=== PATIENT | male | born 1945 | race Hispanic/Latino ===

== ENCOUNTER 2018-01-03 21:29 | Emergency (ER) | payer MEDICARE ==
[2018-01-03 21:47] VITALS: BP 148/87
== END 2018-01-03 23:04 | disposition left against medical advice (07) ==
LOC: ED 21:29
DX: M54.2 Cervicalgia (principal); Z53.21 Procedure and treatment not carried out due to patient leaving prior to being seen by health care provider

== ENCOUNTER 2018-07-27 15:43 | Inpatient (IN) | payer MEDICARE ==
[2018-07-27] MEDS ORDERED: ASPIRIN PO ONE (15:57)
[2018-07-27 16:11] LABS: Basophils # (Auto) 0.1 K/mm3 (0.0-0.1); Basophils % (Auto) 1.1 % (0.0-1.8); Eosinophils # (Auto) 0.1 K/mm3 (0.0-0.4); Eosinophils % (Auto) 0.6 % (0.0-4.3); Hematocrit 46.9 % (35.5-45.6); Hemoglobin 16.3 gm/dl (11.8-15.2); Lymphocytes # (Auto) 2.2 K/mm3 (1.2-5.4); Lymphocytes % (Auto) 23.2 % (13.4-35.0); Mean Corpuscular HGB Conc 35 % (32-34); Mean Corpuscular Volume 91 fl (84-94); Monocytes # (Auto) 0.6 K/mm3 (0.0-0.8); Monocytes % (Auto) 6.4 % (0.0-7.3); Platelet Count 260 K/mm3 (140-440); Red Blood Count 5.17 M/mm3 (3.65-5.03); Red Cell Distribution Width 13.7 % (13.2-15.2)
[2018-07-27 16:27] LABS: BUN/Creatinine Ratio 18; Blood Urea Nitrogen 24 mg/dL (9-20); Calcium 9.5 mg/dL (8.4-10.2); Hemolysis Index 12
[2018-07-27] MEDS ORDERED: NITROSTAT SL PRN (17:12)
[2018-07-27] MEDS ORDERED: NACL 0.9% 1000 ML 1,000 ML IV ONE (17:12)
--- NOTE | 2018-07-27 17:16 | Emergency Department Report ---
ED Chest Pain HPI - General Chief Complaint: Chest Pain Stated Complaint: CHEST PAIN Time Seen by Provider: 07/27/18 17:12 Source: patient Mode of arrival: Ambulatory Limitations: No Limitations - History of Present Illness Initial Comments: Patient is a 73-year-old male with past history of hypertension and high cholesterol who is presenting with chest pressure. Patient states last night approximately 8 PM patient started feeling skipped beat in his chest. Patient also states there was light pressure in the chest proximal LAD 3 out of 10 in severity. Patient states frequency of these skipped beats is now every 5- 10 beats. Patient went to the fire department to get checked on and was told to come immediately to the emergency department. Patient denies any diaphoresis, nausea vomiting, cough cold congestion at this time. Patient has not had any recent stress testing. - Related Data Home Medications Medication Instructions Recorded Confirmed Last Taken Valsartan/Hydrochlorothiazide 1 each PO QDAY 01/02/18 01/02/18 01/01/18 [Valsartan-Hctz 160-12.5 mg Tab] Previous Rx's Medication Instructions Recorded Last Taken Type Acetaminophen [Acetaminophen TAB] 650 mg PO Q4H PRN #30 tablet 01/03/18 Unknown Rx Aspirin 81 mg PO DAILY #30 tab 01/03/18 Unknown Rx Bisoprolol [Zebeta] 2.5 mg PO DAILY #30 tab 01/03/18 01/01/18 Rx Finasteride [Proscar] 5 mg PO HS #30 tab 01/03/18 01/01/18 Rx Pantoprazole [Protonix TAB] 40 mg PO BID #14 tablet 01/03/18 Unknown Rx Rosuvastatin Calcium [Crestor] 20 mg PO DAILY #30 tablet 01/03/18 Unknown Rx amLODIPine [Norvasc] 5 mg PO DAILY #30 tablet 01/03/18 Unknown Rx Allergies Allergy/AdvReac Type Severity Reaction Status Date / Time atorvastatin [From Lipitor] AdvReac liver Verified 07/27/18 15:56 problems Heart Score - HEART Score History: Moderately suspicious EKG: Non-specific Age: > 65 Risk factors: > 3 risk factors or hx of atherosclerotic disease Troponin: < normal limit HEART Score: 6 ED Review of Systems ROS: Stated complaint: CHEST PAIN Other details as noted in HPI Comment: All other systems reviewed and negative ED Past Medical Hx - Past Medical History Previous Medical History?: Yes Hx Hypertension: Yes Additional medical history: high cholesterol - Surgical History Past Surgical History?: Yes Additional Surgical History: VASECTOMY. RIGHT KNEE. TONSILLECTOMY. right shoulder. nasal surgery - Social History Smoking Status: Never Smoker Substance Use Type: None - Medications Home Medications: Home Medications Medication Instructions Recorded Confirmed Last Taken Type Valsartan/Hydrochlorothiazide 1 each PO QDAY 01/02/18 01/02/18 01/01/18 History [Valsartan-Hctz 160-12.5 mg Tab] Acetaminophen [Acetaminophen TAB] 650 mg PO Q4H PRN #30 tablet 01/03/18 Unknown Rx Aspirin 81 mg PO DAILY #30 tab 01/03/18 Unknown Rx Bisoprolol [Zebeta] 2.5 mg PO DAILY #30 tab 01/03/18 01/02/18 01/01/18 Rx Finasteride [Proscar] 5 mg PO HS #30 tab 01/03/18 01/02/18 01/01/18 Rx Pantoprazole [Protonix TAB] 40 mg PO BID #14 tablet 01/03/18 Unknown Rx Rosuvastatin Calcium [Crestor] 20 mg PO DAILY #30 tablet 01/03/18 Unknown Rx amLODIPine [Norvasc] 5 mg PO DAILY #30 tablet 01/03/18 Unknown Rx ED Physical Exam - General Limitations: No Limitations General appearance: alert, in no apparent distress - Head Head exam: Present: atraumatic, normocephalic - Eye Eye exam: Present: normal appearance - ENT ENT exam: Present: mucous membranes moist - Neck Neck exam: Present: normal inspection - Respiratory Respiratory exam: Present: normal lung sounds bilaterally. Absent: respiratory distress, wheezes, rales, rhonchi - Cardiovascular Cardiovascular Exam: Present: regular rate, normal rhythm. Absent: systolic murmur, diastolic murmur, rubs, gallop - GI/Abdominal GI/Abdominal exam: Present: soft, normal bowel sounds. Absent: distended, tenderness, guarding, rebound - Rectal Rectal exam: Present: deferred - Extremities Exam Extremities exam: Present: normal inspection - Back Exam Back exam: Present: normal inspection - Neurological Exam Neurological exam: Present: alert, oriented X3 - Psychiatric Psychiatric exam: Present: normal affect, normal mood - Skin Skin exam: Present: warm, dry, intact, normal color. Absent: rash ED Course Vital Signs 07/27/18 07/27/18 07/27/18 15:48 17:17 17:30 Pulse Rate 64 63 Respiratory 18 17 Rate Blood Pressure 158/79 114/69 121/68 O2 Sat by Pulse 96 96 95 Oximetry 07/27/18 17:57 Pulse Rate Respiratory 18 Rate Blood Pressure O2 Sat by Pulse Oximetry ANTHONY score - Anthony Score Age > 65: (1) Yes Aspirin use within the Past 7 Days: (0) No 3 or more CAD Risk Factors: (1) Yes 2 or more Angina events in past 24 hrs: (1) Yes Known CAD with more than 50% Stenosis: (0) No Elevated Cardiac Markers: (0) No ST Deviation Greater than 0.5mm: (0) No ANTHONY Score: 3 ED Medical Decision Making - Lab Data Result diagrams: 07/27/18 15:59 07/27/18 15:59 Lab Results 07/27/18 07/27/18 Range/Units 15:59 15:59 WBC 9.7 (4.5-11.0) K/mm3 RBC 5.17 H (3.65-5.03) M/mm3 Hgb 16.3 H (11.8-15.2) gm/dl Hct 46.9 H (35.5-45.6) % MCV 91 (84-94) fl MCH 32 (28-32) pg MCHC 35 H (32-34) % RDW 13.7 (13.2-15.2) % Plt Count 260 (140-440) K/mm3 Lymph % (Auto) 23.2 (13.4-35.0) % [place] % (Auto) 6.4 (0.0-7.3) % Eos % (Auto) 0.6 (0.0-4.3) % Baso % (Auto) 1.1 (0.0-1.8) % Lymph # 2.2 (1.2-5.4) K/mm3 [place] # 0.6 (0.0-0.8) K/mm3 Eos # 0.1 (0.0-0.4) K/mm3 Baso # 0.1 (0.0-0.1) K/mm3 Seg Neutrophils % 68.7 (40.0-70.0) % Seg Neutrophils # 6.6 (1.8-7.7) K/mm3 Sodium 137 (137-145) mmol/L Potassium 4.0 (3.6-5.0) mmol/L Chloride 97.7 L (98-107) mmol/L Carbon Dioxide 25 (22-30) mmol/L Anion Gap 18 mmol/L BUN 24 H (9-20) mg/dL Creatinine 1.3 (0.8-1.5) mg/dL Estimated GFR 54 ml/min BUN/Creatinine Ratio 18 % Glucose 124 H (75-100) mg/dL Calcium 9.5 (8.4-10.2) mg/dL Troponin T < 0.010 (0.00-0.029) ng/mL - EKG Data -: EKG Interpreted by Me - EKG Data 07/27/18 17:15 EKG shows sinus rhythm a rate of 65. The patient's EKG shows normal intervals and normal axis. There are occasional PACs present. There are no ST segment elevations or depressions. Time of interpretation is 1611 - Radiology Data Radiology results: image reviewed (chest x-ray is within normal limits) - Medical Decision Making Patient is a 73-year-old male who has a heart score 5. Presented with some chest pressure and palpitations. Patient has continued to throw numerous PACs and is able to feel when these happen. He states the frequency is increasing. Patient's chest discomfort was improved with nitroglycerin. Patient to be admitted to hospitalists under Dr. Leach at this time. Patient to see cardiology for cardiac risk stratification. Patient to be admitted in stable condition. Critical Care Time: Yes (30) Critical care attestation.: If time is entered above; I have spent that time in minutes in the direct care of this critically ill patient, excluding procedure time. ED Disposition Clinical Impression: PAC (premature atrial contraction) Chest pain Qualifiers: Chest pain type: unspecified Qualified Code(s): R07.9 - Chest pain, unspecified Disposition: OP ADMIT IP TO THIS HOSP Is pt being admited?: Yes Does the pt Need Aspirin: No Condition: Stable Instructions: Chest Pain (ED) Time of Disposition: 18:07
--- NOTE | 2018-07-27 18:06 | XRay Report ---
FINAL REPORT EXAM: XR CHEST 1V AP HISTORY: chest pressure and palpitations TECHNIQUE: upright single view chest PRIORS: None. FINDINGS: Cardiac and mediastinal contours are unremarkable. No focal pulmonary infiltrate is identified. No pleural fluid collection seen. Pulmonary vasculature is unremarkable. IMPRESSION: Negative single-view chest
--- NOTE | 2018-07-27 18:18 | History and Physical Report ---
History of Present Illness Chief complaint: My heart was skipping beats History of present illness: 73 YO Male with Obesity, HTN, HLD, Diastolic CHF presents to ED for evaluation. Pt states that he has experienced pain in his chest as well as chest palpitations over the past 1 day wit persistent symptoms over the past 4 hours. Pt states that pain is 3-5/10, substernal, nonradiating, squeezing in nature, not worsened with exertion, not relieved with rest. Pt initially went to a nearby fire station and underwent and EKG and was instructed to seek medical care. Pt was transported to [facility] by his for further care and evaluation. Pt seen and evaluated in ED and found to have symptoms consistent with ACS as well as Diastolic CHF. Pt admitted to telemetry. Cardiology consulted in ED. Pt denies fever, chills, NVD, Trauma, productive cough, skin rash, unilateral leg swelling, calf pain, prolonged travel/immobility, or recent ill contacts. Past History Past Medical History: heart failure, hypertension, hyperlipidemia, other (obesity) Past Surgical History: tonsillectomy, Other (Vasectomy, R Shoulder) Social history: denies: , lives with family, smoking, alcohol abuse, prescription drug abuse Family history: hypertension Medications and Allergies Allergies Allergy/AdvReac Type Severity Reaction Status Date / Time atorvastatin [From Lipitor] AdvReac liver Verified 07/27/18 15:56 problems Home Medications Medication Instructions Recorded Confirmed Last Taken Type Valsartan/Hydrochlorothiazide 1 each PO QDAY 01/02/18 01/02/18 01/01/18 History [Valsartan-Hctz 160-12.5 mg Tab] Acetaminophen [Acetaminophen TAB] 650 mg PO Q4H PRN #30 tablet 01/03/18 Unknown Rx Aspirin 81 mg PO DAILY #30 tab 01/03/18 Unknown Rx Bisoprolol [Zebeta] 2.5 mg PO DAILY #30 tab 01/03/18 01/02/18 01/01/18 Rx Finasteride [Proscar] 5 mg PO HS #30 tab 01/03/18 01/02/18 01/01/18 Rx Pantoprazole [Protonix TAB] 40 mg PO BID #14 tablet 01/03/18 Unknown Rx Rosuvastatin Calcium [Crestor] 20 mg PO DAILY #30 tablet 01/03/18 Unknown Rx amLODIPine [Norvasc] 5 mg PO DAILY #30 tablet 01/03/18 Unknown Rx Active Meds: Active Medications Nitroglycerin (Nitrostat) 0.4 mg SL .Q5MIN PRN PRN Reason: Chest Pain Review of Systems Constitutional: no weight loss, no weight gain, no fever, no chills Ears, nose, mouth and throat: no ear pain, no ear discharge, no tinnitis, no decreased hearing, no nose pain, no nasal congestion Cardiovascular: chest pain, palpitations, no dyspnea on exertion, no paroxysmal nocturnal dyspnea, no claudication Respiratory: no cough, no cough with sputum, no excessive sputum, no hemoptysis Gastrointestinal: no abdominal pain, no nausea, no vomiting, no diarrhea, no constipation Genitourinary Male: no hematuria, no flank pain, no discharge, no urinary frequency, no urinary hesitancy Rectal: no pain, no incontinence, no bleeding Musculoskeletal: no neck stiffness, no neck pain, no shooting arm pain, no arm numbness/tingling, no low back pain, no shooting leg pain Integumentary: no rash, no pruritis, no redness, no sores, no wounds Neurological: no transient paralysis, no paralysis, no weakness, no parathesias, no numbness, no tingling Psychiatric: no anxiety, no memory loss, no change in sleep habits, no sleep disturbances, no insomnia, no hypersomnia Endocrine: no cold intolerance, no heat intolerance, no excessive thirst, no polydipsia, no polyuria Hematologic/Lymphatic: no easy bruising, no easy bleeding, no lymphadenopathy, no lymphedema Allergic/Immunologic: no urticaria, no allergic rhinitis, no wheezing, no persistent infections, no anaphylaxis, no angioedema Exam - Constitutional Vitals: Temp Pulse Resp BP Pulse Ox 63 18 121/68 95 07/27/18 17:30 07/27/18 17:57 07/27/18 17:30 07/27/18 17:30 General appearance: Present: mild distress - EENT Eyes: Present: PERRL ENT: hearing intact, clear oral mucosa - Neck Neck: Present: supple, normal ROM - Respiratory Respiratory effort: normal Respiratory: bilateral: CTA - Cardiovascular Heart Sounds: Present: S1 & S2. Absent: rub, click - Extremities Extremities: pulses symmetrical, No edema Peripheral Pulses: within normal limits - Abdominal General gastrointestinal: Present: soft, non-tender, non-distended, normal bowel sounds Male genitourinary: Present: normal - Integumentary Integumentary: Present: clear, warm, dry - Musculoskeletal Musculoskeletal: gait normal, strength equal bilaterally - Psychiatric Psychiatric: appropriate mood/affect, intact judgment & insight - Neurologic Neurologic: CNII-XII intact, moves all extremities Results - Labs CBC & Chem 7: 07/27/18 15:59 07/27/18 15:59 Labs: Abnormal lab results 07/27/18 07/27/18 Range/Units 15:59 15:59 RBC 5.17 H (3.65-5.03) M/mm3 Hgb 16.3 H (11.8-15.2) gm/dl Hct 46.9 H (35.5-45.6) % MCHC 35 H (32-34) % Chloride 97.7 L (98-107) mmol/L BUN 24 H (9-20) mg/dL Glucose 124 H (75-100) mg/dL Assessment and Plan - Patient Problems (1) ACS (acute coronary syndrome) Current Visit: Yes Status: Acute Plan to address problem: Admit to telemetry, serial cardiac enzymes, bnp, dimer, morphine, supplemental oxygen, nitro, aspirin, cardiology consulted, stress test (2) Diastolic CHF Current Visit: Yes Status: Acute Qualifiers: Heart failure chronicity: acute Qualified Code(s): I50.31 - Acute diastolic (congestive) heart failure Plan to address problem: Admit to telemetry, cardiology consulted in ED, strict I/O, daily weight, echo, monitor uop q shift, (3) HTN (hypertension) Current Visit: Yes Status: Acute Qualifiers: Hypertension type: essential hypertension Qualified Code(s): I10 - Essential (primary) hypertension Plan to address problem: Monitor bp q shift, (4) HLD (hyperlipidemia) Current Visit: Yes Status: Acute Qualifiers: Hyperlipidemia type: mixed hyperlipidemia Qualified Code(s): E78.2 - Mixed hyperlipidemia Plan to address problem: low cholesterol diet, supportive care, risk factor reduction (5) DVT prophylaxis Current Visit: Yes Status: Acute Plan to address problem: SCD to BLE while in bed.
[2018-07-27] MEDS ORDERED: MORPHINE IV PRN (18:19)
[2018-07-27] MEDS ORDERED: ZOFRAN IV PRN (18:19)
[2018-07-27] MEDS ORDERED: BABY ASPIRIN PO STA (18:19)
[2018-07-27] MEDS ORDERED: TYLENOL PO PRN ×2 (18:19→18:23)
[2018-07-27] MEDS ORDERED: PROVENTIL IH PRN (18:19)
[2018-07-27] MEDS ORDERED: SODIUM CHLORIDE FLUSH SYRINGE 10 ML IV PRN ×2 (18:19)
[2018-07-27 19:18] LABS: Chol/HDL Ratio 4.26 %
[2018-07-27] MEDS ORDERED: PROSCAR PO SCH (22:00)
[2018-07-27] MEDS: PEPCID PO SCH (22:46)
[2018-07-27] MEDS: PROTONIX PO SCH (22:46)
[2018-07-27] MEDS: SODIUM CHLORIDE FLUSH SYRINGE 10 ML IV SCH (22:47)
[2018-07-28] MEDS ORDERED: NORVASC PO SCH (10:00)
[2018-07-28] MEDS ORDERED: DIOVAN PO SCH (10:00)
[2018-07-28] MEDS ORDERED: BABY ASPIRIN PO SCH (10:00)
[2018-07-28] MEDS ORDERED: NON-FORMULARY (Rosuvastatin Calcium [Crestor] 20 MG) PO SCH (10:00)
[2018-07-28] MEDS: BISOPROLOL 2.5 MG PO SCH (10:00)
[2018-07-28] MEDS ORDERED: HCTZ PO SCH (10:00)
[2018-07-28] MEDS ORDERED: NON-FORMULARY (Valsartan/Hydrochlorothiazide [Valsartan-Hctz 160-12.5 Mg Tab] 1 EACH) PO SCH (10:00)
--- NOTE | 2018-07-28 10:55 | Progress Note ---
Assessment and Plan Assessment and plan: 73m who pw cp and palpitations, Past History Past Medical History: heart failure, hypertension, hyperlipidemia, other (obesity) Problems CP palpitations htn hld Plan -acs ruled out, serial ce neg - no evidence of chf clinically, fup echo -cardiology consult -optimize meds for chronic conditions dvt ppx chemical History Interval history: Review of systems Constitutional: No fevers, no malaise, no joint pains CVS: No chest pain, no orthopnea, no dyspnea on exertion, no pedal edema GI: No abdominal pain, no diarrhea, no vomiting, no constipation Respiratory: No shortness of breath, no wheezing, no coughing Hospitalist Physical - Physical exam Narrative exam: General.: Appears well, no distress, nontoxic HEENT: Moist mucous membranes, extraocular muscles intact, no lymphadenopathy Neck: supple Cardiac: S1-S2 heard Lungs: clear to auscultation bilaterally Abdomen: soft , nontender, nondistended, bowel sounds positive Extremities: no edema clubbing or cyanosis Skin: no rash or lesions Neurologic: no gross focal deficits Psych: calm, and cooperative - Constitutional Vitals: Temp Pulse Resp BP Pulse Ox 97.4 F L 47 L 16 107/69 95 07/28/18 07:50 07/28/18 07:50 07/28/18 07:50 07/28/18 07:50 07/28/18 09:36 General appearance: Present: mild distress Results - Labs CBC & Chem 7: 07/27/18 15:59 07/27/18 15:59 Labs: Laboratory Last Values WBC 9.7 K/mm3 (4.5-11.0) 07/27/18 15:59 RBC 5.17 M/mm3 (3.65-5.03) H 07/27/18 15:59 Hgb 16.3 gm/dl (11.8-15.2) H 07/27/18 15:59 Hct 46.9 % (35.5-45.6) H 07/27/18 15:59 MCV 91 fl (84-94) 07/27/18 15:59 MCH 32 pg (28-32) 07/27/18 15:59 MCHC 35 % (32-34) H 07/27/18 15:59 RDW 13.7 % (13.2-15.2) 07/27/18 15:59 Plt Count 260 K/mm3 (140-440) 07/27/18 15:59 Lymph % (Auto) 23.2 % (13.4-35.0) 07/27/18 15:59 [place] % (Auto) 6.4 % (0.0-7.3) 07/27/18 15:59 Eos % (Auto) 0.6 % (0.0-4.3) 07/27/18 15:59 Baso % (Auto) 1.1 % (0.0-1.8) 07/27/18 15:59 Lymph # 2.2 K/mm3 (1.2-5.4) 07/27/18 15:59 [place] # 0.6 K/mm3 (0.0-0.8) 07/27/18 15:59 Eos # 0.1 K/mm3 (0.0-0.4) 07/27/18 15:59 Baso # 0.1 K/mm3 (0.0-0.1) 07/27/18 15:59 Seg Neutrophils % 68.7 % (40.0-70.0) 07/27/18 15:59 Seg Neutrophils # 6.6 K/mm3 (1.8-7.7) 07/27/18 15:59 Sodium 137 mmol/L (137-145) 07/27/18 15:59 Potassium 4.0 mmol/L (3.6-5.0) 07/27/18 15:59 Chloride 97.7 mmol/L (98-107) L 07/27/18 15:59 Carbon Dioxide 25 mmol/L (22-30) 07/27/18 15:59 Anion Gap 18 mmol/L 07/27/18 15:59 BUN 24 mg/dL (9-20) H 07/27/18 15:59 Creatinine 1.3 mg/dL (0.8-1.5) 07/27/18 15:59 Estimated GFR 54 ml/min 07/27/18 15:59 BUN/Creatinine Ratio 18 % 07/27/18 15:59 Glucose 124 mg/dL (75-100) H 07/27/18 15:59 Calcium 9.5 mg/dL (8.4-10.2) 07/27/18 15:59 Troponin T < 0.010 ng/mL (0.00-0.029) 07/27/18 21:55 Triglycerides 162 mg/dL (2-149) H 07/27/18 18:50 Cholesterol 128 mg/dL (50-199) 07/27/18 18:50 LDL Cholesterol Direct 84 mg/dL (50-130) 07/27/18 18:50 HDL Cholesterol 30 mg/dL (40-59) L 07/27/18 18:50 Cholesterol/HDL Ratio 4.26 % 07/27/18 18:50
[2018-07-28] MEDS: PROTONIX PO SCH ×2 (11:25→22:22)
[2018-07-28] MEDS: PEPCID PO SCH ×2 (11:25→22:23)
--- NOTE | 2018-07-28 14:00 | Consultation ---
History of Present Illness Consult date: 07/28/18 Consult reason: chest pain History of present illness: 73 YO Male with Obesity, htn and HL who presented to ED with pressure type of chest discomfort and palpitations. He thinks pain is relatively mild and has been happening intermittently for several days. His palpitations feel like a sensation of skipped heart beats. He has known history of PACs and has been treated with low dose bisoprolol. ECG reveals sinus bradycardia at 52 bpm, occasional PACs. His prior cardiac evaluation has included echocardiogram in 12/2017 which revealed normal LVEF of 55-60% and no significant valvular lesions. Past History Past Medical History: hypertension, hyperlipidemia, other (obesity) Past Surgical History: tonsillectomy, Other (Vasectomy, R Shoulder) Social history: denies: , lives with family, smoking, alcohol abuse, prescription drug abuse Family history: hypertension Medications and Allergies Allergies Allergy/AdvReac Type Severity Reaction Status Date / Time atorvastatin [From Lipitor] AdvReac liver Verified 07/27/18 15:56 problems Home Medications Medication Instructions Recorded Confirmed Last Taken Type Valsartan/Hydrochlorothiazide 1 each PO QDAY 01/02/18 07/28/18 07/28/18 07:30 History [Valsartan-Hctz 160-12.5 mg Tab] Bisoprolol [Zebeta] 2.5 mg PO DAILY #30 tab 01/03/18 07/28/18 07/28/18 07:30 Rx Finasteride [Proscar] 5 mg PO HS #30 tab 01/03/18 07/28/18 07/28/18 07:30 Rx Rosuvastatin Calcium [Crestor] 20 mg PO DAILY #30 tablet 01/03/18 07/28/18 07/28/18 07:30 Rx amLODIPine [Norvasc] 5 mg PO DAILY #30 tablet 01/03/18 07/28/18 07/28/18 07:30 Rx Active Meds: Active Medications Acetaminophen (Tylenol) 650 mg PO Q4H PRN PRN Reason: Pain MILD(1-3)/Fever >100.5/RAZA Albuterol (Proventil) 2.5 mg IH Q4HRT PRN PRN Reason: Shortness Of Breath Amlodipine Besylate (Norvasc) 5 mg PO DAILY CHRIS Aspirin (Baby Aspirin) 81 mg PO DAILY CHRIS Last Admin: 07/28/18 11:24 Dose: Not Given Documented by: Enoxaparin Sodium (Lovenox) 40 mg SUB-Q QDAY@2200 [facility] Famotidine (Pepcid) 20 mg PO BID [facility] Last Admin: 07/28/18 11:25 Dose: Not Given Documented by: Finasteride (Proscar) 5 mg PO HS [facility] Miscellaneous (No Known Home Medications) 1 MC QDAY [facility] Miscellaneous (No Known Home Medications) 1 MC QDAY [facility] Miscellaneous Medication (Bisoprolol [Zebeta]) 2.5 mg PO DAILY [facility] Last Admin: 07/28/18 10:00 Dose: Not Given Documented by: Morphine Sulfate (Morphine) 2 mg IV Q4H PRN PRN Reason: Pain, Moderate (4-6) Nitroglycerin (Nitrostat) 0.4 mg SL .Q5MIN PRN PRN Reason: Chest Pain Ondansetron HCl (Zofran) 4 mg IV Q8H PRN PRN Reason: Nausea And Vomiting Pantoprazole Sodium (Protonix) 40 mg PO BID [facility] Last Admin: 07/28/18 11:25 Dose: Not Given Documented by: Sodium Chloride (Sodium Chloride Flush Syringe 10 Ml) 10 ml IV BID [facility] Last Admin: 07/27/18 22:47 Dose: 10 ml Documented by: Sodium Chloride (Sodium Chloride Flush Syringe 10 Ml) 10 ml IV PRN PRN PRN Reason: LINE FLUSH Sodium Chloride (Sodium Chloride Flush Syringe 10 Ml) 10 ml IV PRN PRN PRN Reason: LINE FLUSH Review of Systems All systems: negative (per hpi) Physical Examination Vital Signs Pulse Resp BP Pulse Ox 64 18 158/79 96 07/27/18 15:48 07/27/18 15:48 07/27/18 15:48 07/27/18 15:48 General appearance: no acute distress HEENT: Positive: PERRL, EOMI Neck: Positive: neck supple, trachea midline Cardiac: Positive: Reg Rate and Rhythm. Negative: Audible Murmur Lungs: Positive: clear to auscultation, Normal Breath Sounds Neuro: Positive: Grossly Intact Abdomen: Positive: Soft, Active Bowel Sounds Results 07/27/18 15:59 07/27/18 15:59 Cardiac Enzymes 07/27/18 07/27/18 07/27/18 Range/Units 15:59 15:59 18:50 WBC 9.7 (4.5-11.0) K/mm3 RBC 5.17 H (3.65-5.03) M/mm3 Hgb 16.3 H (11.8-15.2) gm/dl Hct 46.9 H (35.5-45.6) % MCV 91 (84-94) fl MCH 32 (28-32) pg MCHC 35 H (32-34) % RDW 13.7 (13.2-15.2) % Plt Count 260 (140-440) K/mm3 Lymph % (Auto) 23.2 (13.4-35.0) % [place] % (Auto) 6.4 (0.0-7.3) % Eos % (Auto) 0.6 (0.0-4.3) % Baso % (Auto) 1.1 (0.0-1.8) % Lymph # 2.2 (1.2-5.4) K/mm3 [place] # 0.6 (0.0-0.8) K/mm3 Eos # 0.1 (0.0-0.4) K/mm3 Baso # 0.1 (0.0-0.1) K/mm3 Seg Neutrophils % 68.7 (40.0-70.0) % Seg Neutrophils # 6.6 (1.8-7.7) K/mm3 Sodium 137 (137-145) mmol/L Potassium 4.0 (3.6-5.0) mmol/L Chloride 97.7 L (98-107) mmol/L Carbon Dioxide 25 (22-30) mmol/L Anion Gap 18 mmol/L BUN 24 H (9-20) mg/dL Creatinine 1.3 (0.8-1.5) mg/dL Estimated GFR 54 ml/min BUN/Creatinine Ratio 18 % Glucose 124 H (75-100) mg/dL Calcium 9.5 (8.4-10.2) mg/dL Troponin T < 0.010 < 0.010 (0.00-0.029) ng/mL Triglycerides (2-149) mg/dL Cholesterol (50-199) mg/dL LDL Cholesterol Direct (50-130) mg/dL HDL Cholesterol (40-59) mg/dL Cholesterol/HDL Ratio % 07/27/18 07/27/18 Range/Units 18:50 21:55 WBC (4.5-11.0) K/mm3 RBC (3.65-5.03) M/mm3 Hgb (11.8-15.2) gm/dl Hct (35.5-45.6) % MCV (84-94) fl MCH (28-32) pg MCHC (32-34) % RDW (13.2-15.2) % Plt Count (140-440) K/mm3 Lymph % (Auto) (13.4-35.0) % [place] % (Auto) (0.0-7.3) % Eos % (Auto) (0.0-4.3) % Baso % (Auto) (0.0-1.8) % Lymph # (1.2-5.4) K/mm3 [place] # (0.0-0.8) K/mm3 Eos # (0.0-0.4) K/mm3 Baso # (0.0-0.1) K/mm3 Seg Neutrophils % (40.0-70.0) % Seg Neutrophils # (1.8-7.7) K/mm3 Sodium (137-145) mmol/L Potassium (3.6-5.0) mmol/L Chloride (98-107) mmol/L Carbon Dioxide (22-30) mmol/L Anion Gap mmol/L BUN (9-20) mg/dL Creatinine (0.8-1.5) mg/dL Estimated GFR ml/min BUN/Creatinine Ratio % Glucose (75-100) mg/dL Calcium (8.4-10.2) mg/dL Troponin T < 0.010 (0.00-0.029) ng/mL Triglycerides 162 H (2-149) mg/dL Cholesterol 128 (50-199) mg/dL LDL Cholesterol Direct 84 (50-130) mg/dL HDL Cholesterol 30 L (40-59) mg/dL Cholesterol/HDL Ratio 4.26 % Lipids 07/27/18 Range/Units 18:50 Triglycerides 162 H (2-149) mg/dL Cholesterol 128 (50-199) mg/dL HDL Cholesterol 30 L (40-59) mg/dL Cholesterol/HDL Ratio 4.26 % CBC 07/27/18 Range/Units 15:59 WBC 9.7 (4.5-11.0) K/mm3 RBC 5.17 H (3.65-5.03) M/mm3 Hgb 16.3 H (11.8-15.2) gm/dl Hct 46.9 H (35.5-45.6) % Plt Count 260 (140-440) K/mm3 Lymph # 2.2 (1.2-5.4) K/mm3 [place] # 0.6 (0.0-0.8) K/mm3 Eos # 0.1 (0.0-0.4) K/mm3 Baso # 0.1 (0.0-0.1) K/mm3 Comprehensive Metabolic Panel 07/27/18 Range/Units 15:59 Sodium 137 (137-145) mmol/L Potassium 4.0 (3.6-5.0) mmol/L Chloride 97.7 L (98-107) mmol/L Carbon Dioxide 25 (22-30) mmol/L BUN 24 H (9-20) mg/dL Creatinine 1.3 (0.8-1.5) mg/dL Glucose 124 H (75-100) mg/dL Calcium 9.5 (8.4-10.2) mg/dL Assessment and Plan Atypical chest pain. PA ruled out Palpitations related to atrial ectopy Mild sinus bradycardia Htn HL Recommend: Continue current medical therapy including low dose beta zuly. Set up stress MPI for tomorrow.
[2018-07-28] MEDS: SODIUM CHLORIDE FLUSH SYRINGE 10 ML IV SCH ×2 (15:00→22:23)
[2018-07-28] MEDS ORDERED: LOVENOX SUB-Q SCH (22:00)
[2018-07-28] MEDS ORDERED: PROSCAR PO SCH (22:00)
[2018-07-29] MEDS ORDERED: NORVASC PO SCH (07:30)
[2018-07-29] MEDS ORDERED: BABY ASPIRIN PO SCH (07:30)
[2018-07-29] MEDS ORDERED: [UNRECOGNIZED DRUG - REMARK] MC SCH ×2 (07:30)
[2018-07-29] MEDS ORDERED: BISOPROLOL 2.5 MG PO SCH (07:30)
[2018-07-29 07:37] VITALS: BP 132/85
[2018-07-29] MEDS ORDERED: LEXISCAN IV ONE ×2 (09:55→09:58)
--- NOTE | 2018-07-29 11:39 | Discharge Summary ---
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 Hospitalization Condition: Stable Hospital course: 73m who pw cp and palpitations, Past History Past Medical History: heart failure, hypertension, hyperlipidemia, other (obesity) -he received cardiology consultation, who recommended and MPI, MPI was performed on 07/29/17, prelim results were negative for ischemia per [facility] after which he was dc diagnosis CP due to costochondritis htn hld Disposition: DC-01 TO HOME OR SELFCARE Time spent for discharge: 33 minutes Core Measure Documentation - Palliative Care Palliative Care/ Comfort Measures: Not Applicable - Core Measures Any of the following diagnoses?: none Exam - Constitutional Vitals: Temp Pulse Resp BP Pulse Ox 97.6 F 74 20 132/85 96 07/29/18 04:29 07/29/18 08:23 07/29/18 04:29 07/29/18 04:29 07/29/18 04:29 General appearance: Present: no acute distress, well-nourished - EENT Eyes: Present: PERRL ENT: hearing intact, clear oral mucosa - Neck Neck: Present: supple, normal ROM - Respiratory Respiratory effort: normal Respiratory: bilateral: CTA - Cardiovascular Heart Sounds: Present: S1 & S2. Absent: rub, click - Extremities Extremities: pulses symmetrical, No edema Peripheral Pulses: within normal limits - Abdominal General gastrointestinal: Present: soft, non-tender, non-distended, normal bowel sounds Male genitourinary: Present: normal - Integumentary Integumentary: Present: clear, warm, dry - Musculoskeletal Musculoskeletal: gait normal, strength equal bilaterally - Psychiatric Psychiatric: appropriate mood/affect, intact judgment & insight - Neurologic Neurologic: CNII-XII intact, moves all extremities Plan Follow up with: PRIMARY CARE, [Primary Care Provider] - 3-5 Days Prescriptions: Aspirin [Aspirin BABY CHEW TAB] 81 mg PO 0730 #30 tab.chew Pantoprazole [Protonix TAB] 40 mg PO BID #60 tablet
--- NOTE | 2018-07-29 12:47 | Event Note ---
Date: 07/29/18 Patient completed a stress test during which he exercised for 7 minutes per [facility] protocol, no chest pain, no ST changes of ischemia and no significant dysrhythmias. Myocardial perfusion images are pending for final interpretation.
[2018-07-29] MEDS: PEPCID PO SCH (13:18)
[2018-07-29] MEDS: PROTONIX PO SCH (13:18)
[2018-07-29] MEDS: BISOPROLOL 2.5 MG PO SCH (13:20)
[2018-07-29] MEDS: SODIUM CHLORIDE FLUSH SYRINGE 10 ML IV SCH (13:24)
--- NOTE | 2018-07-29 14:45 | Query- Chest Pain ---
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 Questions asked do not imply a particular answer is desired or expected. We greatly appreciate your clarification on this issue. Clinical Documentation States: 73 YO Male with Obesity, HTN, HLD, Diastolic CHF presents to ED for evaluation. Pt states that he has experienced pain in his chest as well as chest palpitations over the past 1 day wit persistent symptoms over the past 4 hours. Pt states that pain is 3-5/10, substernal, nonradiating, squeezing in nature, not worsened with exertion, not relieved with rest. Diagnosis "Chest Pain." Please document the etiology of Chest Pain: [ ] Myocardial Infarction [ ] Pneumonia [ ] Mediastinitis [ x] Costochondritis [ ] Pulmonary Embolism [ ] Coronary Artery Disease [ ] GERD [ ] Other: [ ] Comment/Explanation: Present on Admission: [x ] Yes (Y) [ ] Clinically undeterminable (W) [ ] No(N) Please document response in your Progress Notes and/or Discharge Summary and indicate if the condition was present on admission. KYLIE
--- NOTE | 2018-07-29 19:02 | Treadmill Report ---
THALLIUM STRESS TEST LEFT VENTRICLE: Left ventricular chamber size is within normal spread. Perfusion study demonstrates normal apical thinning, otherwise homogeneous uptake of the tracer in all segments, no significant defects identified. Gated analysis demonstrates normal left ventricular systolic function, ejection fraction greater than 70%. CONCLUSION: Normal myocardial perfusion study. JOB# [id number] CA/NTS
== END 2018-07-29 14:35 | disposition home or self-care (01) | DRG 205 ==
LOC: ED 15:43 → 4A 18:19
PROVIDERS: ADMIT Internal Medicine; ATTEND Internal Medicine
DX: M94.0 Chondrocostal junction syndrome [Tietze] (principal); I50.31 Acute diastolic (congestive) heart failure; I11.0 Hypertensive heart disease with heart failure; E66.9 Obesity, unspecified; E78.2 Mixed hyperlipidemia; Z68.33 Body mass index [BMI] 33.0-33.9, adult
CPT/HCPCS: 36415; 71045; 78452; 80048; 80061; 84484; 85025; 93005; 93010; 93017; 93306; G0378; A9502; J1650; J2405; J2785; J7030

== ENCOUNTER 2019-12-09 12:34 | Emergency (ER) | payer MEDICARE ==
[2019-12-09 12:55] VITALS: BP 163/100
[2019-12-09] MEDS ORDERED: KETOROLAC 60 MG/2 ML INJ IM ONE (13:20)
--- NOTE | 2019-12-09 13:28 | Emergency Department Report ---
ED General Adult HPI - General Chief complaint: Shoulder Injury Stated complaint: PAIN IN LEFT SHOULDER Time Seen by Provider: 12/09/19 13:15 Source: patient Mode of arrival: Ambulatory Limitations: No Limitations - History of Present Illness Initial comments: Patient is 74 years old male with history of hypertension diabetes and hyperlipidemia. Patient presented to the ER complaining of 4-day history of pain to the upper back mainly to the left side. Patient stated that the pain is in a certain point. Patient stated that pain increases when he moves his left shoulder. Patient denied any chest pain or shortness of breath. Patient also denied any fever, chills or cough. Patient had exercise stress test last year and it was normal. - Related Data Home Medications Medication Instructions Recorded Confirmed Last Taken Valsartan/Hydrochlorothiazide 1 each PO QDAY 01/02/18 07/28/18 07/28/18 07:30 [Valsartan-Hctz 160-12.5 mg Tab] Previous Rx's Medication Instructions Recorded Last Taken Type Bisoprolol [Zebeta] 2.5 mg PO DAILY #30 tab 01/03/18 07/28/18 07:30 Rx Finasteride [Proscar] 5 mg PO HS #30 tab 01/03/18 07/28/18 07:30 Rx Rosuvastatin Calcium [Crestor] 20 mg PO DAILY #30 tablet 01/03/18 07/28/18 07:30 Rx amLODIPine 5 mg PO DAILY #30 tablet 01/03/18 07/28/18 07:30 Rx Aspirin [Aspirin BABY CHEW TAB] 81 mg PO 0730 #30 tab.chew 07/29/18 Unknown Rx Pantoprazole [Protonix TAB] 40 mg PO BID #60 tablet 07/29/18 Unknown Rx Allergies Allergy/AdvReac Type Severity Reaction Status Date / Time atorvastatin [From Lipitor] AdvReac liver Verified 07/27/18 15:56 problems ED Review of Systems ROS: Stated complaint: PAIN IN LEFT SHOULDER Other details as noted in HPI Comment: All other systems reviewed and negative Constitutional: denies: chills, fever Respiratory: denies: cough, shortness of breath Cardiovascular: denies: chest pain, palpitations Gastrointestinal: denies: abdominal pain, nausea, vomiting Musculoskeletal: back pain Neurological: denies: headache, weakness, numbness, paresthesias, confusion ED Past Medical Hx - Past Medical History Previous Medical History?: Yes Hx Hypertension: Yes Hx Congestive Heart Failure: No Hx Diabetes: No Hx Asthma: No Hx COPD: No Additional medical history: high cholesterol - Surgical History Past Surgical History?: Yes Additional Surgical History: VASECTOMY. RIGHT KNEE. TONSILLECTOMY. right shoulder. nasal surgery - Social History Smoking Status: Never Smoker Substance Use Type: None - Medications Home Medications: Home Medications Medication Instructions Recorded Confirmed Last Taken Type Valsartan/Hydrochlorothiazide 1 each PO QDAY 01/02/18 07/28/18 07/28/18 07:30 History [Valsartan-Hctz 160-12.5 mg Tab] Bisoprolol [Zebeta] 2.5 mg PO DAILY #30 tab 01/03/18 07/28/18 07/28/18 07:30 Rx Finasteride [Proscar] 5 mg PO HS #30 tab 01/03/18 07/28/18 07/28/18 07:30 Rx Rosuvastatin Calcium [Crestor] 20 mg PO DAILY #30 tablet 01/03/18 07/28/18 07/28/18 07:30 Rx amLODIPine 5 mg PO DAILY #30 tablet 01/03/18 07/28/18 07/28/18 07:30 Rx Aspirin [Aspirin BABY CHEW TAB] 81 mg PO 0730 #30 tab.chew 07/29/18 Unknown Rx Pantoprazole [Protonix TAB] 40 mg PO BID #60 tablet 07/29/18 Unknown Rx ED Physical Exam - General Limitations: No Limitations General appearance: alert, in no apparent distress - Head Head exam: Present: atraumatic, normocephalic, normal inspection - Eye Eye exam: Present: normal appearance - ENT ENT exam: Present: normal exam, normal orophraynx, mucous membranes moist - Neck Neck exam: Present: normal inspection, full ROM. Absent: tenderness, me ningismus, lymphadenopathy, thyromegaly - Respiratory Respiratory exam: Present: normal lung sounds bilaterally - Cardiovascular Cardiovascular Exam: Present: regular rate, normal rhythm, normal heart sounds. Absent: bradycardia - GI/Abdominal GI/Abdominal exam: Present: soft, normal bowel sounds. Absent: distended, tenderness, guarding, rebound, rigid, organomegaly, mass, bruit, pulsatile mass, hernia - Extremities Exam Extremities exam: Present: normal inspection, full ROM, normal capillary refill. Absent: pedal edema, calf tenderness - Back Exam Back exam: Present: normal inspection, full ROM, tenderness (Tenderness at the medial side of the scapula.). Absent: CVA tenderness (R), CVA tenderness (L) - Neurological Exam Neurological exam: Present: alert, oriented X3, CN II-XII intact, normal gait, reflexes normal - Psychiatric Psychiatric exam: Present: normal mood - Skin Skin exam: Present: warm, intact, normal color ED Course Vital Signs 12/09/19 12/09/19 12:48 12:54 Temperature 97.4 F L Pulse Rate 57 L Respiratory 17 18 Rate Blood Pressure 163/100 O2 Sat by Pulse 98 Oximetry ED Medical Decision Making - EKG Data -: EKG Interpreted by [place] EKG shows normal: sinus rhythm Rate: bradycardia - EKG Data Interpretation: no acute changes - Radiology Data Radiology results: report reviewed - Medical Decision Making Patient is 74 years old male with history of hypertension diabetes and hyperlipidemia. Patient presented to the ER complaining of 4-day history of pain to the upper back mainly to the left side. Patient stated that the pain is in a certain point. Patient stated that pain increases when he moves his left shoulder. Patient denied any chest pain or shortness of breath. Patient also denied any fever, chills or cough. Patient had exercise stress test last year and it was normal. Chest x-ray and left shoulder x-ray is unremarkable. Patient refused blood work. Patient symptoms is most likely related to musculoskeletal pain patient has a localized tenderness at the rhomboid muscles. Patient improved with Toradol 60 mg IM. There is no clinical evidence at this moment to indicate acute coronary artery disease. Critical care attestation.: If time is entered above; I have spent that time in minutes in the direct care of this critically ill patient, excluding procedure time. ED Disposition Clinical Impression: Back pain Disposition: DC-01 TO HOME OR SELFCARE Is pt being admited?: No Condition: Stable Instructions: Back Pain (ED), Shoulder Sprain (ED)
--- NOTE | 2019-12-09 14:00 | XRay Report ---
Left shoulder-3 views INDICATION: Left shoulder pain. COMPARISON: None. IMPRESSION: No acute osseous or soft tissue abnormality. Moderate glenohumeral degenerative arthr osis. Signer Name: Jose Lerner MD Signed: 12/09/2019 1:56 PM Workstation Name: [id number]
--- NOTE | 2019-12-09 14:01 | XRay Report ---
CHEST 1 VIEW INDICATION: Chest Pain. COMPARISON: 07/27/2018 FINDINGS: Support devices: None. Heart: Within normal limits. Lungs/Pleura: Minimal scarring/atelectasis at the left costophrenic angle. Otherwise no acute air spa ce or interstitial disease. Additional findings: None. IMPRESSION: 1. No acute findings. Signer Name: Jose Lerner MD Signed: 12/09/2019 1:57 PM Workstation Name: [id number]
== END 2019-12-09 14:23 | disposition home or self-care (01) ==
LOC: ED 12:34
DX: M54.6 Pain in thoracic spine (principal); M25.512 Pain in left shoulder; I10 Essential (primary) hypertension; E78.00 Pure hypercholesterolemia, unspecified; Z98.890 Other specified postprocedural states; Z90.89 Acquired absence of other organs; Z79.899 Other long term (current) drug therapy; Z88.8 Allergy status to other drugs, medicaments and biological substances
CPT/HCPCS: 71045; 73030; 93005; 96372; 99284; J1885

== ENCOUNTER 2021-01-15 03:40 | Emergency (ER) | payer MEDICARE ==
--- NOTE | 2021-01-15 04:34 | XRay Report ---
Left shoulder 3 views INDICATION: Shoulder pain FINDINGS: Degenerative change in left shoulder joint space narrowing. Large osteophyte along the infe rior aspect of the glenoid and humeral head neck junction. Signer Name: Bakari Ahuja MD Signed: 01/15/2021 4:30 AM Workstation Name: [id number]
[2021-01-15 05:02] VITALS: BP 156/77
[2021-01-15] MEDS ORDERED: KETOROLAC 30 MG/1 ML INJ IM ONE (05:21)
[2021-01-15] MEDS ORDERED: dexAMETHasone 4 MG/ML VIAL IM STA (05:21)
[2021-01-15] MEDS ORDERED: HYDROcodone/ACETAMINOPHEN 5-325 MG TAB PO ONE (05:22)
--- NOTE | 2021-01-15 05:26 | Emergency Department Report ---
ED General Adult HPI - General Chief complaint: Shoulder Injury Stated complaint: CANT MOVE LEFT ARM Time Seen by Provider: 01/15/21 04:40 Source: patient Mode of arrival: Ambulatory Limitations: No Limitations - History of Present Illness Initial comments: 75-year-old male patient presents with complaints of left shoulder pain x2 months, worsening since 2 AM. Patient rates his pain as a 10/10 in severity and states any movement of the right shoulder causes extreme pain. He denies any chest pain, shortness of breath, numbness/tingling/weakness in his left arm. The shoulder hurts to touch per patient. Naproxen helps some per patient. -: Sudden - Related Data Home Medications Medication Instructions Recorded Confirmed Last Taken Valsartan/Hydrochlorothiazide 1 each PO QDAY 01/02/18 07/28/18 07/28/18 07:30 [Valsartan-Hctz 160-12.5 mg Tab] Previous Rx's Medication Instructions Recorded Last Taken Type Bisoprolol [Zebeta] 2.5 mg PO DAILY #30 tab 01/03/18 07/28/18 07:30 Rx Finasteride [Proscar] 5 mg PO HS #30 tab 01/03/18 07/28/18 07:30 Rx Rosuvastatin Calcium [Crestor] 20 mg PO DAILY #30 tablet 01/03/18 07/28/18 07:30 Rx amLODIPine 5 mg PO DAILY #30 tablet 01/03/18 07/28/18 07:30 Rx Aspirin [Aspirin BABY CHEW TAB] 81 mg PO 0730 #30 tab.chew 07/29/18 Unknown Rx Pantoprazole [Protonix TAB] 40 mg PO BID #60 tablet 07/29/18 Unknown Rx Cyclobenzaprine HCl [Flexeril 5 MG 5 mg PO TID PRN #21 tab 12/09/19 Unknown Rx TAB] Naproxen [Naprosyn] 500 mg PO BID #14 tablet 12/09/19 Unknown Rx Diclofenac Sodium 50 mg PO TID PRN #21 tablet. 01/15/21 Unknown Rx Prednisone [predniSONE 5 mg (6-Day 5 mg PO .TAPER #1 tab.ds.pk 01/15/21 Unknown Rx Pack, 21 Tabs)] methocarbamoL [Methocarbamol] 750 mg PO TID PRN #21 tablet 01/15/21 Unknown Rx Allergies Allergy/AdvReac Type Severity Reaction Status Date / Time atorvastatin [From Lipitor] AdvReac liver Verified 07/27/18 15:56 problems ED Review of Systems ROS: Stated complaint: CANT MOVE LEFT ARM Other details as noted in HPI Constitutional: denies: chills, fever, malaise Respiratory: denies: shortness of breath Cardiovascular: denies: chest pain Musculoskeletal: arthralgia. denies: joint swelling Skin: denies: change in color Neurological: denies: numbness, paresthesias ED Past Medical Hx - Past Medical History Hx Hypertension: Yes Hx Congestive Heart Failure: No Hx Diabetes: No Hx Asthma: No Hx COPD: No Additional medical history: high cholesterol - Surgical History Additional Surgical History: VASECTOMY. RIGHT KNEE. TONSILLECTOMY. right shoulder. nasal surgery - Social History Smoking Status: Never Smoker Substance Use Type: None - Medications Home Medications: Home Medications Medication Instructions Recorded Confirmed Last Taken Type Valsartan/Hydrochlorothiazide 1 each PO QDAY 01/02/18 07/28/18 07/28/18 07:30 History [Valsartan-Hctz 160-12.5 mg Tab] Bisoprolol [Zebeta] 2.5 mg PO DAILY #30 tab 01/03/18 07/28/18 07/28/18 07:30 Rx Finasteride [Proscar] 5 mg PO HS #30 tab 01/03/18 07/28/18 07/28/18 07:30 Rx Rosuvastatin Calcium [Crestor] 20 mg PO DAILY #30 tablet 01/03/18 07/28/18 07/28/18 07:30 Rx amLODIPine 5 mg PO DAILY #30 tablet 01/03/18 07/28/18 07/28/18 07:30 Rx Aspirin [Aspirin BABY CHEW TAB] 81 mg PO 0730 #30 tab.chew 07/29/18 Unknown Rx Pantoprazole [Protonix TAB] 40 mg PO BID #60 tablet 07/29/18 Unknown Rx Cyclobenzaprine HCl [Flexeril 5 MG 5 mg PO TID PRN #21 tab 12/09/19 Unknown Rx TAB] Naproxen [Naprosyn] 500 mg PO BID #14 tablet 12/09/19 Unknown Rx Diclofenac Sodium 50 mg PO TID PRN #21 tablet. 01/15/21 Unknown Rx Prednisone [predniSONE 5 mg (6-Day 5 mg PO .TAPER #1 tab.ds.pk 01/15/21 Unknown Rx Pack, 21 Tabs)] methocarbamoL [Methocarbamol] 750 mg PO TID PRN #21 tablet 01/15/21 Unknown Rx ED Physical Exam - General Limitations: No Limitations General appearance: alert, in no apparent distress, obese - Head Head exam: Present: atraumatic, normocephalic - Eye Eye exam: Present: normal appearance - Neck Neck exam: Present: normal inspection, full ROM - Respiratory Respiratory exam: Present: normal lung sounds bilaterally. Absent: respiratory distress - Cardiovascular Cardiovascular Exam: Present: regular rate, normal rhythm - Expanded Upper Extremity Exam Left Shoulder Exam: Present: tenderness (Tenderness to palpation noted at the lateral humeral head and the trapezius muscle insertion without obvious deformity, swelling, or erythema). Absent: full ROM (Limited due to pain) Elbow exam: Present: normal inspection Forearm Wrist exam: Present: normal inspection Vascular: Absent: vascular compromise - Back Exam Back exam: Present: full ROM - Neurological Exam Neurological exam: Present: alert, oriented X3 - Psychiatric Psychiatric exam: Present: normal affect, normal mood - Skin Skin exam: Present: warm, dry, intact, normal color. Absent: rash ED Course Vital Signs 01/15/21 03:46 Temperature 97.5 F L Pulse Rate 57 L Respiratory 18 Rate Blood Pressure 156/77 O2 Sat by Pulse 92 Oximetry ED Medical Decision Making - Radiology Data Radiology results: report reviewed Left shoulder 3 views INDICATION: Shoulder pain FINDINGS: Degenerative change in left shoulder joint space narrowing. Large osteophyte along the inferior aspect of the glenoid and humeral head neck junction. - Medical Decision Making 75-year-old male patient presents with complaints of left shoulder pain x2 months, worsening since 2 AM. Patient rates his pain as a 10/10 in severity and states any movement of the right shoulder causes extreme pain. He denies any chest pain, shortness of breath, numbness/tingling/weakness in his left arm. The shoulder hurts to touch per patient. Naproxen helps some per patient. X-ray shows multiple arthritic changes of the shoulder. Will treat with Toradol and Decadron. Recommend follow-up with orthopedics in 3 days. Discussed signs and symptoms that should prompt immediate return to the emergency department in detail with patient verbalized understanding. He is well-appearing and stable for discharge home. Critical care attestation.: If time is entered above; I have spent that time in minutes in the direct care of this critically ill patient, excluding procedure time. ED Disposition Clinical Impression: Shoulder pain, left Disposition: DC-01 TO HOME OR SELFCARE Is pt being admited?: No Condition: Stable Instructions: Shoulder Pain, Adhesive Capsulitis Prescriptions: Diclofenac Sodium 50 mg PO TID PRN #21 tablet. PRN Reason: pain methocarbamoL [Methocarbamol] 750 mg PO TID PRN #21 tablet PRN Reason: muscle spasm/tightness Prednisone [predniSONE 5 mg (6-Day Pack, 21 Tabs)] 5 mg PO .TAPER #1 tab.ds.pk Referrals: [facility] [Provider Group] - 3-5 Days
== END 2021-01-15 05:45 | disposition home or self-care (01) ==
LOC: ED 03:40
DX: M25.512 Pain in left shoulder (principal); I10 Essential (primary) hypertension; Z79.899 Other long term (current) drug therapy; Z90.89 Acquired absence of other organs; Z98.890 Other specified postprocedural states; Z88.8 Allergy status to other drugs, medicaments and biological substances
CPT/HCPCS: 73030; 96372; 99283; J1100; J1885